=== PATIENT | male | born 1970 | race Caucasian/White ===

== ENCOUNTER → 2017-01-17 | Outpatient (CLI) | payer BC ==
--- NOTE | 2017-01-17 10:57 | KCIC ---
PROCEDURE CT coronary calcium scoring. HISTORY Hypertension, type 1 diabetes, hyperlipidemia. Family history of coronary disease. TECHNIQUE CT of the chest was performed without intravenous contrast for the purposes of coronary calcium scoring. One or more of the following individualized dose reduction techniques were utilized for this examination: 1. Automated exposure control; 2. Adjustment of the mA and/or kV according to patient size; 3. Use of iterative reconstruction technique. FINDINGS The total coronary calcium score is 215.5. Left main: 0.0. Left anterior descendin.7. Left circumflex: 0.0. Right coronary: 20.8. Limited CT images of the included portions of the chest reveal no abnormality. IMPRESSION - Coronary calcium score 215.5. Electronically signed by: Steve Reddy (Jan 17, 2017 10:55:54)
== END | disposition home or self-care (01) ==
LOC: KCIC CT 09:30 → EDUNIT# 10:00
PROVIDERS: ATTEND Family Medicine
DX: E11.9 Type 2 diabetes mellitus without complications (principal); I10 Essential (primary) hypertension; Z82.49 Family history of ischemic heart disease and other diseases of the circulatory system; Z84.89 Family history of other specified conditions
CPT/HCPCS: 75571

== ENCOUNTER → 2017-01-22 | Outpatient (CLI) | payer BC ==
--- NOTE | 2017-01-25 16:15 | SLEEP ---
DATE OF STUDY: 01/22/2017 ATTENDING PHYSICIAN: Dr. Shima Neal. This is a 46 years old who, weighs 205 pounds with a BMI of 30. The patient's Pullman score was 3. The patient underwent sleep study at [facility]. This was a split night study. During the night of study, the patient spent 430 minutes in bed and slept for 366 minutes with a sleep efficiency of 85%. Sleep latency was 46 minutes with a REM latency of 253 minutes. Overall, sleep architecture showed increased stage I and stage II sleep, normal slow wave and reduced REM sleep. During the initial diagnostic portion of the study, the patient slept for 130 minutes. During this time, there were 19 obstructive apneas, no mixed or central apneas and 106 hypopneas. The patient's apnea-hypopnea index was 58 per hour. Supine sleep was not seen. REM sleep was also not seen during the diagnostic portion. EKG monitoring revealed normal sinus rhythm, average heart rate was 81 beats per minute, no sustained arrhythmias were observed. No PLMS were seen. Review of nocturnal oximetry study, revealed a mean oxygen saturation 93% with the lowest of 86%. 10% of time oxygen saturation remained between 80% and 89%. The patient met the criteria for CPAP initiation. It was started at 5 cm water and titrated up to 12 cm of water. At the final pressure, the patient had 82 minutes of sleep. Supine sleep was seen throughout as well as a short REM period was observed. AHI was reduced to 5 per hour, mostly from a few central apneas from leak. Oxygen saturation remained above 91%. The patient used a small sized nasal mask. IMPRESSION: 1. Severe sleep apnea-hypopnea syndrome with an AHI of 58 per hour. 2. Nocturnal hypoxia secondary to obstructive sleep apnea, but resolved with CPAP. 3. No clinically significant PLMS. RECOMMENDATIONS: 1. CPAP at 12 cm of water completely eliminated the patient's sleep apnea and should be used on a nightly basis. 2. Follow up in 4-6 weeks to assess compliance with CPAP and to document clinical improvement. 3. Weight loss is strongly advised. 4. Avoid MAIL ORDER CLERK depressants. 5. Caution regarding driving until symptoms of sleep apnea resolve with the use of CPAP. TARAN ELLIS MD DR: PJ/kaleb JOB#: [id number] / [id number] SHIMA Briones MD [facility]
== END | disposition home or self-care (01) ==
LOC: RT 18:43
PROVIDERS: ATTEND Family Medicine
DX: R06.83 Snoring (principal); R06.81 Apnea, not elsewhere classified
CPT/HCPCS: 95810

== ENCOUNTER → 2017-02-05 | Outpatient (CLI) | payer BC | END | disposition home or self-care (01) | LOC: NM 07:54 | PROVIDERS: ATTEND Family Medicine | DX: R93.1 Abnormal findings on diagnostic imaging of heart and coronary circulation (principal) | CPT/HCPCS: 93017 ==

== ENCOUNTER → 2017-02-26 | Outpatient (CLI) | payer BC ==
--- NOTE | 2017-02-27 12:38 | RAD ---
APPROVED REPORT Test Type: Exercise Stress Nurse/Tech: Gail Vu R.N. Test Indications: ELEVATED CORONARY ARTERY CALCIUM SCORE Cardiac History: family hx CAD, htn, dmI Medications: See Electronic Medical Record Medical History: See Electronic Medical Record Resting ECG: SR Resting Heart Rate: 65 bpm Resting Blood Pressure: 141/56mmHg Pretest Chest Pain: No chest pain Nurse/Tech Notes S1S2, lungs CTA Consent: The procedure was explained to the patient in lay terms. Informed consent was witnessed. Travis eout was entered into [employer]. History and Stress Test performed by [facility] Stress Symptoms No chest pain or symptoms. POST EXERCISE Reason for Termination: Reached target heart rate Target HR: Yes Max HR: 174 bpm 118% of Maximum Predicted HR: 147 bpm Exercise duration: 8.40 min:sec, 3 Stage Exercise capacity: 10METs Max Blood Pressure: 201/73mmHg Blood Pressure response to exercise: b/p got significantly higher Heart Rate response to exercise: wnl Chest Pain: No. Arrhythmia: No. ST Change: Yes. some slight depression in leads II,AVF. slight elevation in leads V2, AND V1 Imaging Protocol IMAGE PROTOCOL: Rest Tc-99m/stress Tc-99m 1 day Rest: Stress: Viability: Radiopharm.Tc99m PubstoffpAr94x Sestamibi Dose10.2mCi 32.5mCi Duration 15min. 10min. Img Date 02/26/2017 02/26/2017 Inj-Img [id number]. 60min. Rest Admin Site:IV - Left WristAdministrator:RT Adryan (R)(N) Stress Admin Site: IV - Left WristAdministrator: [facility] STRESS DATA End Diast. Vol.99.0mlAv. Heart Rate99.0bpm End Syst. Vol.24.0mlCO Index BSA0.0L/min Myocardial Smlm684.0gEject. Uyqojaim22.0% Stress Rates Pk. Fill Rate4.80EDV/secLVtime Pk. Fill 171.40msec Pk. Empty Rate5.45ESV/secLVtime Pk. Qnjnc966.63msec 11/07 Pk. Fill1.47EDV/sec Stress Scores Regional WT0.00Summed WT1.00 Regional WM0.00Summed WM0.00 LV Perf. Quant 17 Seg. SSS0.00 17 Seg. SRS0.00 17 Seg. SDS0.00 Stress Defect Extent (% LAD)0.00Rest Defect Extent (% LAD)0.00Rev. Defect Extent (% LAD)0.00 Stress Defect Extent (% LCX) 0.00Rest Defect Extent (% LCX)0.00Rev. Defect Extent (% LCX)0.00 Stress Defect Extent (% RCA)0.00Rest Defect Extent (% RCA)0.00Rev. Defect Extent (% RCA)0.00 Stress Defect Extent (% JOSE ARMANDO)0.00Rest Defect Extent (% JOSE ARMANDO)0.00Rev. Defect Extent (% JOSE ARMANDO)0.00 Conclusion 1. Exercised patient on the Ricardo protocol for a total of 8 minutes and 40 seconds. Exercise was term inated at that point. 2. He had attained a heart rate of 174 bpm which is almost 100% of the maximum predicted heart rate f or his age. 3. There was no chest pain. There were no definite electrocardiographic changes suggestive of myocard ial ischemia. 4. There was a normal blood pressure response and no arrhythmias. 5. No perfusion defects are seen to suggest myocardial ischemia or scar. 6. There is normal wall motion and wall thickening with an ejection fraction of 76%. 7. Scan indicates low risk for future cardiac events.
== END | disposition home or self-care (01) ==
LOC: NM 08:30
PROVIDERS: ATTEND Family Medicine
DX: R93.1 Abnormal findings on diagnostic imaging of heart and coronary circulation (principal); Z82.49 Family history of ischemic heart disease and other diseases of the circulatory system
CPT/HCPCS: 78452; 93017; 96374; 96376; A9500

== ENCOUNTER → 2017-11-12 | Day surgery (SDC) | payer BC ==
[~2017-11-12] MED LIST: BUPIVACAINE MPF 0.5% 30 ML VIAL.; FAMOTIDINE 20 MG/2 ML VIAL; HYDROmorphone 2 MG/ML VIAL IV; LIDOCAINE 1% PF 2 ML VIAL. ID; LIDOCAINE 1% PF 30 ML VIAL.; LIDOCAINE 2% PF Vial for OR 5 ML VIAL.; MIDAZOLAM HCL/PF 2 MG/2 ML VIAL.; MORPHINE SULFATE 2 MG/ML DISP.SYRIN. IV; ONDANSETRON PF 4 MG/2 ML VIAL.; ONDANSETRON PF 4 MG/2 ML VIAL. IV; PROCHLORPERAZINE 10 MG/2 ML VIAL. IV; PROPOFOL 20 ML IV; fentaNYL PF VIAL 100 MCG/2 ML VIAL; fentaNYL PF VIAL 100 MCG/2 ML VIAL IV; traMADol 50 MG TABLET
[2017-11-12] MEDS: IV RINGERS,LACTATED 1000ML 1,000 ML IV (09:05)
[2017-11-12] MEDS: LIDOCAINE 1% 20 ML VIAL. (10:45)
[2017-11-12] MEDS: DEXAMETHASONE SOD PHOS 4 MG/ML VIAL (10:45)
[2017-11-12] MEDS: BUPIVACAINE MPF 0.5% 30 ML VIAL. (10:56)
[2017-11-12] MEDS: LIDOCAINE 1% PF 30 ML VIAL. (10:56)
[2017-11-12] MEDS: traMADol 50 MG TABLET PO (11:50)
== END | disposition home or self-care (01) ==
LOC: SURG 08:24
DX: M65.341 Trigger finger, right ring finger (principal); M65.352 Trigger finger, left little finger; M79.1 Myalgia; E78.00 Pure hypercholesterolemia, unspecified; F41.9 Anxiety disorder, unspecified; F17.200 Nicotine dependence, unspecified, uncomplicated; G47.30 Sleep apnea, unspecified; Z86.69 Personal history of other diseases of the nervous system and sense organs; Z86.39 Personal history of other endocrine, nutritional and metabolic disease; Z72.0 Tobacco use
CPT/HCPCS: 20552; J0690; J1100; J2250; J2405; J2704; J3010; J3490; S0028

== ENCOUNTER 2018-02-25 05:50 | Day surgery (SDC) | payer BC ==
[2018-02-25] MEDS: IV RINGERS,LACTATED 1000ML 1,000 ML IV (06:45)
[2018-02-25] MEDS ORDERED: fentaNYL PF VIAL 100 MCG/2 ML VIAL IV ×2 (07:00)
[2018-02-25] MEDS ORDERED: ONDANSETRON PF 4 MG/2 ML VIAL. IV (07:00)
[2018-02-25] MEDS ORDERED: PROCHLORPERAZINE 10 MG/2 ML VIAL. IV (07:00)
[2018-02-25] MEDS ORDERED: LIDOCAINE 1% PF 2 ML VIAL. ID (07:00)
[2018-02-25] MEDS ORDERED: MORPHINE SULFATE 4 MG/ML DISP.SYRIN. IV (07:00)
[2018-02-25] MEDS ORDERED: DEXAMETHASONE SOD PHOS 20 MG/5 ML VIAL. (07:12)
[2018-02-25] MEDS ORDERED: LIDOCAINE 2% PF Vial for OR 5 ML VIAL. ×3 (07:12→07:19)
[2018-02-25] MEDS ORDERED: PROPOFOL 20 ML IV ×4 (07:12→07:41)
[2018-02-25] MEDS ORDERED: ONDANSETRON PF 4 MG/2 ML VIAL. (07:12)
[2018-02-25] MEDS ORDERED: FAMOTIDINE 20 MG/2 ML VIAL (07:12)
[2018-02-25] MEDS ORDERED: MIDAZOLAM HCL/PF 2 MG/2 ML VIAL. ×2 (07:13→07:42)
[2018-02-25] MEDS ORDERED: fentaNYL PF VIAL 100 MCG/2 ML VIAL (07:13)
[2018-02-25] MEDS ORDERED: ceFAZolin 2GM PREMIX 2 GM/50 ML BAG IV (08:00)
[2018-02-25] MEDS: BUPIVACAINE MPF 0.5% 30 ML VIAL. (08:26)
[2018-02-25] MEDS: LIDOCAINE 1% PF 30 ML VIAL. (08:28)
== END 2018-02-25 10:46 | disposition home or self-care (01) ==
LOC: SURG 05:50
DX: M65.352 Trigger finger, left little finger (principal); M65.312 Trigger thumb, left thumb; I10 Essential (primary) hypertension; E11.9 Type 2 diabetes mellitus without complications; F98.8 Other specified behavioral and emotional disorders with onset usually occurring in childhood and adolescence
CPT/HCPCS: 26055; A7015; J0690; J1100; J2250; J2405; J2704; J3010; J3490; S0028

== ENCOUNTER → 2018-11-18 | Outpatient (CLI) | payer BC ==
[2018-02-25 09:01] VITALS: BP 109/63
[~2018-11-18] MED LIST changes: +ALBU2.5V8 INH; +ALPR1TAB6 PO; +AMLO10TA8 PO; +ASPI-482 PO; -BUPIVACAINE MPF 0.5% 30 ML VIAL.; +CETI10TA16 PO; +CHOL10003 PO; +CRESTOR40 MG PO; +DEXT20CA7 PO; +DOCU-109 PO; -FAMOTIDINE 20 MG/2 ML VIAL; +GLUCOSE TABLETS; +HYDR-3164 PO; -HYDROmorphone 2 MG/ML VIAL IV; +INSU100C SQ; -LIDOCAINE 1% PF 2 ML VIAL. ID; -LIDOCAINE 1% PF 30 ML VIAL.; -LIDOCAINE 2% PF Vial for OR 5 ML VIAL.; +LOSA1TAB19 PO; -MIDAZOLAM HCL/PF 2 MG/2 ML VIAL.; -MORPHINE SULFATE 2 MG/ML DISP.SYRIN. IV; +ONDA8TAB9 PO; +ONDA8TAB9 SL; -ONDANSETRON PF 4 MG/2 ML VIAL.; -ONDANSETRON PF 4 MG/2 ML VIAL. IV; +PARO25TA11 PO; +PARO30TA3 PO; -PROCHLORPERAZINE 10 MG/2 ML VIAL. IV; -PROPOFOL 20 ML IV; -fentaNYL PF VIAL 100 MCG/2 ML VIAL; -fentaNYL PF VIAL 100 MCG/2 ML VIAL IV; -traMADol 50 MG TABLET
--- NOTE | 2018-11-18 18:39 | KCIC ---
EXAM: PA and Lateral Views of the Chest DATE: 11/18/2018 12:00 AM INDICATION: Dry cough, fevers COMPARISON: No Prior FINDINGS: The heart is not enlarged. Mediastinal and hilar contours are normal. There are developing patchy parenchymal airspace opacities in the left lung base likely developing consolidative process such as pneumonia. No pleural effusion or pneumothorax. IMPRESSION: 1. Left lung base airspace opacities, suspicious for developing consolidation/pneumonia. Electronically signed by: Delbert Sky MD (11/18/2018 6:34 PM) [facility]
== END | disposition home or self-care (01) ==
LOC: KCIC 15:41
PROVIDERS: ATTEND Nurse Practitioner Family
DX: R50.9 Fever, unspecified (principal); R05 Cough; Z87.891 Personal history of nicotine dependence
CPT/HCPCS: 71046

== ENCOUNTER 2018-12-11 07:34 | Day surgery (SDC) | payer BC ==
[~2018-12-11] VITALS: Ht 172.7 cm; Wt 98.0 kg
[~2018-12-11 07:34] MED LIST changes: -CETI10TA16 PO; -DOCU-109 PO; -GLUCOSE TABLETS; -HYDR-3164 PO; +HYDROmorphone 2 MG/ML VIAL IV PRN; +LIDOCAINE 1% PF 2 ML VIAL. ID PRN; +MORPHINE SULFATE 4 MG/ML VIAL. IV PRN; -ONDA8TAB9 PO; -ONDA8TAB9 SL; +ONDANSETRON PF 4 MG/2 ML VIAL. IV PRN; +PROCHLORPERAZINE 10 MG/2 ML VIAL. IV PRN; +fentaNYL PF VIAL 100 MCG/2 ML VIAL IV PRN
[2018-12-11] MEDS: IV RINGERS,LACTATED 1000ML 1,000 ML IV SCH (08:25)
--- NOTE | 2018-12-11 09:30 | DISCH ---
DISCHARGE INSTRUCTIONS Condition on Discharge Condition on Discharge: Stable Activity After Discharge Activity Instructions for Disc: Activity as tolerated Other activity instructions: wiggle fingers as tolerated Bathing Instructions: Shower-keep dressing dry Lifting Instructions after Dis: No heavy lifting Weight Bearing Status after Di: As tolerated Diet after Discharge Diet after Discharge: Regular Wound Incision Care Wound/Incision Care: Ice to area for comfort, Keep wound/cast CDI, Change dressing Other wound/incision instructi: ok to change dressing after [address] after DC Call your doctor for: Concerns you may have Follow-Up Follow up with: Carlos in 2 wks ANA ADEN II, MD Dec 11, 2018 09:30
[2018-12-11] MEDS ORDERED: LIDOCAINE 2% PF Vial for OR 5 ML VIAL. ONE (09:32)
[2018-12-11] MEDS ORDERED: SEVOFLURANE 61 TO 120 MINUTES. IH ONE (09:32)
[2018-12-11] MEDS ORDERED: KETOROLAC 30 MG/ML INJ FOR OR. INJ ONE (09:32)
[2018-12-11] MEDS ORDERED: ONDANSETRON PF 4 MG/2 ML VIAL. ONE (09:32)
[2018-12-11] MEDS ORDERED: PROPOFOL 20 ML IV ONE (09:32)
[2018-12-11] MEDS: LIDOCAINE 1% 20 ML VIAL. ONE (09:37)
[2018-12-11] MEDS: BUPIVACAINE MPF 0.5% 30 ML VIAL. ONE (09:37)
[2018-12-11] MEDS ORDERED: HYDR-3164 PO ×2 (10:35→10:37)
[2018-12-11] MEDS ORDERED: DOCU-109 PO (10:37)
[2018-12-11] MEDS ORDERED: ONDA8TAB9 PO (10:38)
[2018-12-11 10:48] VITALS: BP 119/67
--- NOTE | 2018-12-11 11:03 | PDOC4 ---
Operative Note Operative Note Date of procedure: 12/11/2018 Surgeon: Florian Aden Preoperative diagnosis: Left second digit trigger finger Postoperative diagnosis: Same Procedure performed: Open left second digit trigger finger release Anesthesia: Gen. Findings: Thickened nodule and flexor tendon Tourniquet time: Less than 30 minutes Blood loss: 5 mL Complications: None Reason for procedure: Patient is a very pleasant 39-year-old gentleman who has had trigger digits in the past. We had tried injections in the past and these have not worked. He has undergone successful trigger finger releases and requested the same be performed on his left second digit. We did review the risks, benefits, and alternatives and he wished to proceed. Description of procedure: Patient was greeted in the preoperative area where the correct digit was verified and marked. He was taken back to the operative suite and transferred gently supine to the operative room table. His antibiotics were started. He underwent successful induction of a general anesthetic. We placed a nonsterile tourniquet and taped in place to his left upper arm and proceeded prep and drape left upper extremity in our usual sterile fashion and conducted our standard preoperative timeout. I made an incision in his volar hand just proximal to the metacarpal head and dissected subcutaneous tissues tissue with mosquitoes and a tenotomy. His digital nerve was encountered and very gently protected with a Ragnell retractor. I identified the A1 miesha and after ensuring no overlying tissue or structures, I released it with the tenotomy scissors. The flexor tendons were delivered with a mosquito to ensure complete release. I injected local anesthetic mixture into the. Incisional subcutaneous tissue. The tourniquet was let down and a left bipolar electrocautery was used for hemostasis. The wound was thoroughly irrigated and then closed with simple interrupted 3-0 nylon. A bulky soft dressing was applied. He was awakened from anesthesia. He tolerated surgery well. At the conclusion, he was transferred gently supine to the recovery room cart and taken to PACU stable and extubated condition. All counts were correct prior to wound closure. No complications. Postoperative plan is to discharge him home. Active range of motion at his digits was encouraged. Wound care was given and written form. He will follow up with me in his postoperative appointment in about 2 weeks, sooner should a problem arise FLORIAN ADEN II, MD Dec 11, 2018 11:03
== END 2018-12-11 11:34 | disposition home or self-care (01) ==
LOC: SURG 07:34
PROVIDERS: ATTEND Orthopaedic Surgery Sports Medicine
DX: M65.322 Trigger finger, left index finger (principal)
CPT/HCPCS: 26055; A7015; J0696; J1885; J2001; J2405; J2704; J3490

== ENCOUNTER → 2018-12-30 | Outpatient (CLI) | payer BC ==
[2018-12-11 10:48] VITALS: BP 119/67
[~2018-12-30] MED LIST changes: +CETI10TA16 PO; +DOCU-109 PO; +GLUCOSE TABLETS; +HYDR-3164 PO; -HYDROmorphone 2 MG/ML VIAL IV PRN; -LIDOCAINE 1% PF 2 ML VIAL. ID PRN; -MORPHINE SULFATE 4 MG/ML VIAL. IV PRN; +ONDA8TAB9 PO; +ONDA8TAB9 SL; -ONDANSETRON PF 4 MG/2 ML VIAL. IV PRN; -PROCHLORPERAZINE 10 MG/2 ML VIAL. IV PRN; -fentaNYL PF VIAL 100 MCG/2 ML VIAL IV PRN
--- NOTE | 2018-12-30 15:18 | KCIC ---
EXAM: Chest, single view. HISTORY: Pneumonia. COMPARISON: 11/18/2018 FINDINGS: A frontal view of the chest is obtained. There is no infiltrate, pleural effusion or pneumothorax. The heart is normal in size. IMPRESSION: No acute pulmonary finding. Electronically signed by: Kendra Alicia MD (12/30/2018 3:15 PM) [place] [id number]
== END | disposition home or self-care (01) ==
LOC: KCIC 14:55
PROVIDERS: ATTEND Family Medicine
DX: J18.9 Pneumonia, unspecified organism (principal)
CPT/HCPCS: 71045

== ENCOUNTER 2019-01-29 07:26 | Day surgery (SDC) | payer BC ==
[~2019-01-29] VITALS: Ht 172.7 cm; Wt 98.0 kg
[~2019-01-29 07:26] MED LIST changes: +HYDROmorphone 2 MG/ML VIAL IV PRN; +IV RINGERS,LACTATED 1000ML 1,000 ML IV SCH; +MORPHINE SULFATE 2 MG/ML VIAL. IV PRN; -ONDA8TAB9 SL; +ONDANSETRON PF 4 MG/2 ML VIAL. IV PRN; +PROCHLORPERAZINE 10 MG/2 ML VIAL. IV PRN; +ceFAZolin 2GM PREMIX 2 GM/50 ML BAG IV ONE; +fentaNYL PF VIAL 100 MCG/2 ML VIAL IV PRN
[2019-01-29] MEDS ORDERED: LIDOCAINE 1% PF 30 ML VIAL. ONE (07:35)
[2019-01-29] MEDS ORDERED: BUPIVACAINE MPF 0.5% 30 ML VIAL. ONE (07:35)
[2019-01-29] MEDS ORDERED: MIDAZOLAM HCL/PF 2 MG/2 ML VIAL. ONE (08:34)
[2019-01-29] MEDS ORDERED: LIDOCAINE 2% PF 5 ML VIAL. ONE (08:34)
[2019-01-29] MEDS ORDERED: PROPOFOL 20 ML IV ONE ×3 (08:34→09:21)
--- NOTE | 2019-01-29 08:55 | DISCH ---
DISCHARGE INSTRUCTIONS Condition on Discharge Condition on Discharge: Stable Activity After Discharge Activity Instructions for Disc: Activity as tolerated Other activity instructions: frequent ROM at finger Bathing Instructions: Shower-keep dressing dry Lifting Instructions after Dis: No heavy lifting Weight Bearing Status after Di: As tolerated Diet after Discharge Diet after Discharge: Regular Wound Incision Care Wound/Incision Care: Ice to area for comfort, Keep wound/cast CDI, Change dressing Other wound/incision instructi: ok to change dressing as needed Contacting the DR. after DC Call your doctor for: Concerns you may have Follow-Up Follow up with: Carlos in 2 wks ANA ADEN II, MD Jan 29, 2019 08:55
[2019-01-29] MEDS ORDERED: LIDOCAINE 1% PF 30 ML VIAL. INJ ONE (09:15)
--- NOTE | 2019-01-29 09:36 | PDOC4 ---
Operative Note Operative Note Due to procedure: 01/29/2019 Surgeon: Florian Aden Preoperative diagnosis: Right index finger trigger finger Postoperative diagnosis: Same Procedure performed: Open right second digit trigger finger release Anesthesia: Sedation Tourniquet time: 9 min Blood loss: 2 ml Complications: none Findings: Thickened nodule at flexor tendon at second digit Reason for procedure: Patient is a very pleasant 48-year-old gentleman who has undergone prior trigger finger releases with myself and recently presented to my clinic complaining of painful catching and locking and interference with his activities of daily living secondary to development of triggering at his right second digit. We had tried injections in the past and other digits and these have not been successful and he requested an open right trigger finger release, given his history of diabetes and failure of injections in the past and felt that this was reasonable. Therefore, we reviewed the risks, benefits, and alternatives to the surgery and he wished to proceed. Description of procedure: Patient was greeted in the preoperative area by myself for the correct digit was verified and marked. He was transferred gently supine to the operative room table and secured to bed with all pressure points padded. He underwent successful induction of a conscious sedation monitored by anesthesia. Nonsterile tourniquet was applied to his right upper extremity and the right upper trimming was prepped and draped in our usual sterile fashion and we conducted our standard preoperative timeout. I then made a incision transversely in his palm just proximal to the metacarpal head on the volar aspect, I spread down to the flexor tendon with a tenotomy scissor and identified the A1 miesha, I placed Ragnell retractors to assist with visualization and to visualize that there was no overlying nerve. After this, I released the A1 miesha. I then used the curved mosquito clamp to delivered the tendons and to the operative field to help ensure that accomplished a complete release. The wound was then irrigated out. Skin was then closed with 2-0 nylon in a simple interrupted fashion after thoroughly irrigating the operative field out with sterile fluid. Local anesthetic was injected into the jennifer-incisional soft tissue. Hemostasis was achieved with bipolar cautery. All counts correct 2 prior to wound closure. At the conclusion, Xeroform and a sterile soft bulky dressing was applied to his hand and secured around his wrist. He tolerated surgery well. No competitions. At the conclusion, he was awakened from his sedation and transferred to a supine to the recovery room cart and taken to the PACU in a stable and extubated condition. Postoperative plan is to encourage wound elevation and active range of motion in his digits. Wound care was provided in verbal and written form. We will see him back in 2 weeks, sooner should a problem arise. FLORIAN ADEN II, MD Jan 29, 2019 09:36
[2019-01-29] MEDS ORDERED: HYDR-3164 PO (09:45)
[2019-01-29] MEDS ORDERED: HYDROcodone/APAP 5/325MG 1 TAB TABLET PO ONE (09:45)
[2019-01-29] MEDS ORDERED: DOCU-109 PO (09:47)
[2019-01-29] MEDS ORDERED: ONDA8TAB9 SL (09:48)
[2019-01-29 10:30] VITALS: BP 138/68
== END 2019-01-29 10:51 | disposition home or self-care (01) ==
LOC: SURG 07:26
PROVIDERS: ATTEND Orthopaedic Surgery Sports Medicine
DX: M65.321 Trigger finger, right index finger (principal); I10 Essential (primary) hypertension; F41.9 Anxiety disorder, unspecified; E10.9 Type 1 diabetes mellitus without complications; E78.00 Pure hypercholesterolemia, unspecified; Z79.4 Long term (current) use of insulin; H91.90 Unspecified hearing loss, unspecified ear; Z98.890 Other specified postprocedural states; Z82.49 Family history of ischemic heart disease and other diseases of the circulatory system; Z83.3 Family history of diabetes mellitus; Z87.891 Personal history of nicotine dependence; Z72.89 Other problems related to lifestyle; Z79.899 Other long term (current) drug therapy; Z79.82 Long term (current) use of aspirin
CPT/HCPCS: 26055; J0696; J2001; J2250; J2704; J3490

== ENCOUNTER 2019-09-22 08:56 | Day surgery (SDC) | payer BC ==
[~2019-09-22] VITALS: Ht 172.7 cm; Wt 97.5 kg
[~2019-09-22 08:56] MED LIST changes: +CHOL100016 PO; +INSU100C4 SQ; +LIDOCAINE 1% PF 2 ML VIAL. ID PRN; +ONDA8TAB9 SL; -ceFAZolin 2GM PREMIX 2 GM/50 ML BAG IV ONE
[2019-09-22] MEDS ORDERED: INSULIN LISPRO 100 UNIT/ML 3ML VIAL for OP,RR ONLY. SQ PRN (09:00)
[2019-09-22] MEDS ORDERED: MIDAZOLAM HCL/PF 2 MG/2 ML VIAL. ONE (09:51)
[2019-09-22] MEDS ORDERED: LIDOCAINE 2% PF 5 ML VIAL. ONE ×4 (09:51→10:01)
[2019-09-22] MEDS ORDERED: KETOROLAC 30 MG/ML VIAL. ONE ×2 (09:51→10:00)
[2019-09-22] MEDS ORDERED: DEXAMETHASONE SOD PHOS 4 MG/ML VIAL ONE (09:51)
[2019-09-22] MEDS ORDERED: KETAMINE HCL IN NACL, ISO-OSM 50 MG/5 ML SYRINGE ONE (09:51)
[2019-09-22] MEDS ORDERED: PROPOFOL 20 ML IV ONE (09:51)
[2019-09-22] MEDS ORDERED: FAMOTIDINE 20 MG/2 ML VIAL ONE (09:51)
--- NOTE | 2019-09-22 09:59 | DISCH ---
DISCHARGE INSTRUCTIONS Condition on Discharge Condition on Discharge: Stable Activity After Discharge Activity Instructions for Disc: Activity as tolerated Bathing Instructions: Shower-keep dressing dry Lifting Instructions after Dis: No heavy lifting Weight Bearing Status after Di: As tolerated Diet after Discharge Diet after Discharge: Regular Wound Incision Care Wound/Incision Care: Ice to area for comfort, Keep wound/cast CDI, Change dressing Other wound/incision instructi: okay to change dressing after [address] after DC Call your doctor for: Concerns you may have Follow-Up Follow up with: Carlos in 2 weeks ANA ADEN II, MD Sep 22, 2019 09:59
[2019-09-22] MEDS ORDERED: GLYCOPYRROLATE 1 MG/5 ML VIAL. ONE (10:05)
--- NOTE | 2019-09-22 10:39 | PDOC4 ---
Operative Note Operative Note Date of procedure: 09/22/2019 Surgeon: Florian Aden Preoperative diagnosis: Right middle finger trigger finger Postoperative diagnosis: Same Procedure performed: Open right third trigger finger release Anesthesia: Sedation plus per block Findings: Thickened nodule and flexor tendon Blood loss: 1mL Tourniquet time: 20min Complications: none Reason for procedure: Patient is a pleasant 48-year-old male who has had prior trigger finger releases with myself that it got successfully. We have tried injections in the past and these have not had any effect. He presented with catching and locking in his right third digit and requested trigger finger release and I reviewed the risks, benefits, and alternatives and he wished to proceed. Description of procedure: Patient was greeted in the preoperative area by myself for the correct extremity was verified and marked, initials on the correct digit. He was taken back to the operative suite and his box were started as he was brought back. Once in the operating room, he was transferred to respond the operating table and secured the bed with all pressure points padded. The hand board attachment was secured to the operating room table. He underwent suc cessful placement of the block and sedation. The right upper extremity was then prepped and draped in our usual sterile fashion and we conducted our standard preoperative timeout. I then made about a 1 cm transverse incision just proximal to the volar metacarpal head of the affected digit and dissected subcutaneous tissues tissue with a mosquito. Identified the flexor tendon sheath and the A1 miesha, used a Ragnell retractor at the distal portion of the incision and tenotomies to release the A1 miesha. I then used the mosquito is to delivered the flexor tendons from the incision to help ensure accomplished a complete release and I was confident I had. After this, the wound was irrigated out and the skin was closed with 3-0 nylon in a mattress fashion. A sterile soft bulky dressing was then applied. Patient was awakened from anesthesia. No complications. Surgery was tolerated well by the patient and at the conclusion the patient was transferred gently supine to the recovery room cart and taken to PACU in a stable next bit condition. Postoperative plan is to discharge him home, active range of motion and elevation were encouraged. Hell follow up with me in 2 weeks, sooner should a problem arise FLORIAN ADEN II, MD Sep 22, 2019 10:39
[2019-09-22 10:53] VITALS: BP 122/53
[2019-09-22] MEDS ORDERED: HYDROcodone/APAP 10/325 1 TAB TABLET ONE (11:25)
[2019-09-22] MEDS ORDERED: HYDROcodone/APAP 10/325 1 TAB TABLET PO ONE (12:00)
== END 2019-09-22 11:38 | disposition home or self-care (01) ==
LOC: SURG 08:56
PROVIDERS: ATTEND Orthopaedic Surgery Sports Medicine
DX: M65.331 Trigger finger, right middle finger (principal); F41.9 Anxiety disorder, unspecified; I10 Essential (primary) hypertension; E10.8 Type 1 diabetes mellitus with unspecified complications; E78.00 Pure hypercholesterolemia, unspecified; Z98.890 Other specified postprocedural states; Z79.4 Long term (current) use of insulin; Z87.891 Personal history of nicotine dependence; Z72.89 Other problems related to lifestyle
CPT/HCPCS: 26055; A7015; J0690; J1885; J2001; J2250; J2704; J3490; J1100

== ENCOUNTER 2019-12-08 06:05 | Day surgery (SDC) | payer BC ==
[~2019-12-08] VITALS: Ht 162.6 cm; Wt 97.5 kg
[~2019-12-08 06:05] MED LIST changes: -HYDROmorphone 2 MG/ML VIAL IV PRN; -IV RINGERS,LACTATED 1000ML 1,000 ML IV SCH; -LIDOCAINE 1% PF 2 ML VIAL. ID PRN; -MORPHINE SULFATE 2 MG/ML VIAL. IV PRN; -ONDANSETRON PF 4 MG/2 ML VIAL. IV PRN; -PROCHLORPERAZINE 10 MG/2 ML VIAL. IV PRN; +ceFAZolin SODIUM IV Push 1 GM VIAL. IVP PRN; -fentaNYL PF VIAL 100 MCG/2 ML VIAL IV PRN
[2019-12-08] MEDS ORDERED: INSULIN LISPRO 100 UNIT/ML 3ML VIAL for OP,RR ONLY. SQ PRN (06:15)
[2019-12-08] MEDS ORDERED: LIDOCAINE 1% PF 2 ML VIAL. ID PRN (07:00)
[2019-12-08] MEDS ORDERED: MORPHINE SULFATE 2 MG/ML VIAL. IV PRN (07:00)
[2019-12-08] MEDS ORDERED: PROCHLORPERAZINE 10 MG/2 ML VIAL. IV PRN (07:00)
[2019-12-08] MEDS ORDERED: HYDROmorphone 2 MG/ML VIAL IV PRN (07:00)
[2019-12-08] MEDS ORDERED: fentaNYL PF VIAL 100 MCG/2 ML VIAL IV PRN ×2 (07:00)
[2019-12-08] MEDS ORDERED: IV RINGERS,LACTATED 1000ML 1,000 ML IV SCH (07:00)
[2019-12-08] MEDS ORDERED: ONDANSETRON PF 4 MG/2 ML VIAL. IV PRN (07:00)
[2019-12-08] MEDS ORDERED: BUPIVACAINE MPF 0.5% 30 ML VIAL. ONE (07:04)
[2019-12-08] MEDS ORDERED: LIDOCAINE 1% PF 30 ML VIAL. ONE (07:04)
[2019-12-08] MEDS ORDERED: MIDAZOLAM HCL/PF 2 MG/2 ML VIAL. ONE (07:10)
[2019-12-08] MEDS ORDERED: PROPOFOL 20 ML IV ONE (07:10)
[2019-12-08] MEDS ORDERED: KETAMINE HCL IN NACL, ISO-OSM 50 MG/5 ML SYRINGE ONE (07:10)
[2019-12-08] MEDS ORDERED: PROPOFOL 50 ML IV ONE (07:10)
[2019-12-08] MEDS ORDERED: FAMOTIDINE 20 MG/2 ML VIAL ONE (07:10)
[2019-12-08] MEDS ORDERED: ONDANSETRON PF 4 MG/2 ML VIAL. ONE (07:10)
--- NOTE | 2019-12-08 07:34 | DISCH ---
DISCHARGE INSTRUCTIONS Condition on Discharge Condition on Discharge: Stable Activity After Discharge Activity Instructions for Disc: Activity as tolerated Bathing Instructions: Shower-keep dressing dry Lifting Instructions after Dis: No heavy lifting Weight Bearing Status after Di: As tolerated Diet after Discharge Diet after Discharge: Regular Wound Incision Care Wound/Incision Care: Ice to area for comfort, Keep wound/cast CDI, Change dressing Other wound/incision instructi: ok to chagne dressing after [address] after DC Call your doctor for: Concerns you may have Follow-Up Follow up with: Carlos in 2 wks ANA ADEN II, MD Dec 08, 2019 07:34
--- NOTE | 2019-12-08 08:04 | PDOC4 ---
Operative Note Operative Note Date of procedure: 12/08/2019 Surgeon: Florian Aden Russian Teacher: Alok Sandoval Preoperative diagnosis: Left ring trigger finger Postoperative diagnosis: Same Procedure performed: Open left ring trigger finger release Anesthesia: MAC with local Findings: Thickened nodule at flexor tendon Blood loss: 2mL Tourniquet time: 12 min Complications: none Reason for procedure: Patient is a pleasant male who has had painful catching at his left 4th digit. We have tried injections in the past and these have not had any effect. Due to failure of conservative therapies and interference with his activities daily living, we discussed proceeding with the above surgery and he elected to proceed. Description of procedure: Patient was greeted in the preoperative area by myself for the correct extremity was verified and marked, initials on the correct digit. He was taken back to the operative suite and his box were started as he was brought back. Once in the operating room, he was transferred to respond the operating table and secured the bed with all pressure points padded. The hand board attachment was secured to the operating room table. He underwent successful MAC. The left upper extremity was then prepped and draped in our usual sterile fashion and we conducted our standard preoperative timeout. I injected a local anesthetic mixture into the affected area I then made about a 1 cm transverse incision just proximal to the volar metacarpal head of the affec boo digit and dissected subcutaneous tissues tissue with a mosquito. Identified the flexor tendon sheath and the A1 miesha, used a Ragnell retractor at the distal portion of the incision and tenotomies to release the A1 miesha. I then used the mosquito is to delivered the flexor tendons from the incision to help ensure accomplished a complete release and I was confident I had. After this, the wound was irrigated out and the skin was closed with 3-0 nylon in a mattress fashion. A sterile soft bulky dressing was then applied. Patient was awakened from anesthesia. No complications. All counts were correct times 2 prior to wound closure. Surgery was tolerated well by the patient and at the conclusion the patient was transferred gently supine to the recovery room cart and taken to PACU in a stable condition. Postoperative plan is to discharge him home, active range of motion and elevation were encouraged. Hell follow up with me in 2 weeks, sooner should a problem arise. FLORIAN ADEN II, MD Dec 08, 2019 08:04
[2019-12-08] MEDS ORDERED: HYDR-3164 PO (08:32)
[2019-12-08] MEDS ORDERED: DOCU-109 PO (08:33)
[2019-12-08] MEDS ORDERED: ONDA8TAB9 PO (08:34)
[2019-12-08 08:45] VITALS: BP 120/56
== END 2019-12-08 09:18 | disposition home or self-care (01) ==
LOC: SURG 06:05
PROVIDERS: ATTEND Orthopaedic Surgery Sports Medicine
DX: M65.342 Trigger finger, left ring finger (principal); I10 Essential (primary) hypertension; E10.9 Type 1 diabetes mellitus without complications; E78.00 Pure hypercholesterolemia, unspecified; F41.9 Anxiety disorder, unspecified; Z98.890 Other specified postprocedural states; Z79.4 Long term (current) use of insulin; Z83.3 Family history of diabetes mellitus; Z82.49 Family history of ischemic heart disease and other diseases of the circulatory system; Z87.891 Personal history of nicotine dependence; Z79.899 Other long term (current) drug therapy; Z79.82 Long term (current) use of aspirin
CPT/HCPCS: 82962; A7015; J0690; J2250; J2405; J2704; J3490